=== PATIENT | male | born 1990 | race Hispanic/Latino ===

== ENCOUNTER 2017-06-12 17:59 | Emergency (ER) | payer SELFPAY ==
[~2017-06-12] VITALS: Ht 175.3 cm; Wt 72.5 kg
[~2017-06-12 17:59] MED LIST: FLOMAX0.4 MG OR; LORTAB 5 OR; MEDDOSEPAK PO; NO HOME MEDS; REGLAN5 MG OR; VICODIN ES1 TAB OR
[2017-06-12] MEDS ORDERED: TRAMADOL HYDROC50 MG PO (19:26)
[2017-06-12 19:48] VITALS: BP 135/82
== END 2017-06-12 19:48 | disposition home or self-care (01) | DRG 605 ==
LOC: ED 17:59
DX: S20.212A Contusion of left front wall of thorax, initial encounter (principal); R06.02 Shortness of breath; Y93.72 Activity, wrestling; Y92.009 Unspecified place in unspecified non-institutional (private) residence as the place of occurrence of the external cause

== ENCOUNTER 2018-07-11 19:06 | Emergency (ER) | payer SELFPAY ==
[~2018-07-11] VITALS: Ht 175.3 cm; Wt 77.0 kg
[~2018-07-11 19:06] MED LIST changes: +TRAMADOL HYDROC50 MG PO
[2018-07-11] MEDS ORDERED: TORADOL PO (20:20)
[2018-07-11] MEDS ORDERED: FLEXERIL5 M1 PO (20:20)
[2018-07-11 20:30] VITALS: BP 128/86
== END 2018-07-11 20:30 | disposition home or self-care (01) | DRG 563 ==
LOC: ED 19:06
DX: S39.012A Strain of muscle, fascia and tendon of lower back, initial encounter (principal); X58.XXXA Exposure to other specified factors, initial encounter

== ENCOUNTER 2019-01-28 13:18 | Emergency (ER) | payer SELFPAY ==
[~2019-01-28] VITALS: Ht 175.3 cm; Wt 72.7 kg
[~2019-01-28 13:18] MED LIST changes: +FLEXERIL5 M1 PO; +TORADOL PO
[2019-01-28 15:07] VITALS: BP 116/73
== END 2019-01-28 15:07 | disposition home or self-care (01) | DRG 563 ==
LOC: ED 13:18
PROC: 2W3RX1Z Immobilization of Left Lower Leg using Splint (ICD-10-PCS; principal; 2019-01-28)
DX: S82.432A Displaced oblique fracture of shaft of left fibula, initial encounter for closed fracture (principal); S93.402A Sprain of unspecified ligament of left ankle, initial encounter; M25.572 Pain in left ankle and joints of left foot; X50.1XXA Overexertion from prolonged static or awkward postures, initial encounter; W17.2XXA Fall into hole, initial encounter; Y92.007 Garden or yard of unspecified non-institutional (private) residence as the place of occurrence of the external cause

== ENCOUNTER 2019-02-17 11:02 | Day surgery (SDC) | payer SELFPAY ==
[~2019-02-17 11:02] MED LIST changes: +ALEVE220 M1 PO; +TYLENOL 500MG TAB PO
[2019-02-17 12:00] LABS: BARBITURATES NEGATIVE (NEGATIVE); COCAINE POSITIVE (NEGATIVE); METHADONE NEGATIVE (NEGATIVE); OXCYCODONE NEGATIVE (NEGATIVE); TETRAHYDROCANNABIONOL POSITIVE (NEGATIVE); TRICYLIC ANTIDEPRESSANTS NEGATIVE (NEGATIVE)
[2019-02-17] MEDS ORDERED: PERCOCET 10/31 COMBO PO (16:30)
[2019-02-17 17:09] VITALS: BP 127/81
== END 2019-02-17 17:22 | disposition home or self-care (01) | DRG 494 ==
LOC: ORM 11:02
PROVIDERS: ATTEND Orthopaedic Surgery
PROC: 0QSK04Z Reposition Left Fibula with Internal Fixation Device, Open Approach (ICD-10-PCS; principal; 2019-02-17)
PROC: 3E0T3BZ Introduction of Anesthetic Agent into Peripheral Nerves and Plexi, Percutaneous Approach (ICD-10-PCS; 2019-02-17)
DX: S82.62XA Displaced fracture of lateral malleolus of left fibula, initial encounter for closed fracture (principal); W18.30XA Fall on same level, unspecified, initial encounter
CPT/HCPCS: J0131

== ENCOUNTER 2019-03-13 15:09 | Emergency (ER) | payer SELFPAY ==
[~2019-03-13] VITALS: Ht 180.3 cm; Wt 77.0 kg
[~2019-03-13 15:09] MED LIST changes: +PERCOCET 10/31 COMBO PO
[2019-03-13] MEDS ORDERED: BACTRIM DS1 TAB PO (15:22)
[2019-03-13] MEDS ORDERED: CEPHALEXIN500 M1 PO (15:22)
[2019-03-13 16:10] LABS: HEMATOCRIT 40.4 % (39.0-50.0); IMMATURE GRANULOCYTES 0.5 % (0.0-5.0); MEAN CELL VOLUME 90.8 fL CALC (80.0-100.0); MEAN CORPUSCULAR HGB 30.1 pG CALC (26.0-32.0); MEAN CORPUSCULAR HGB CONC 33.2 g/L CALC (32.0-36.0); NEUT# 7.23 thou/uL (1.82-7.42); RED BLOOD COUNT 4.45 mill/uL (4.70-6.10)
[2019-03-13 16:16] LABS: HEMOGLOBIN 13.4 g/dl (14.0-18.0)
[2019-03-13 16:30] LABS: ANION GAP 14 (6-22 (CALC)); BUN 10 mg/dL (9-20); BUN/CREATININE RATIO 12 (12-20 (CALC)); CARBON DIOXIDE 24 mmol/l (22-30); CHLORIDE 104 mmol/l (95-108); CREATININE 0.8 mg/dL (0.7-1.3); GFR > 60 ML/MIN (>=60 (CALC)); GFR FOR AFR.AMER. > 60 ML/MIN (>=60 (CALC)); POTASSIUM 4.3 mmol/l (3.5-5.1); SODIUM 137 mmol/l (137-146)
[2019-03-13 16:42] VITALS: BP 120/68
== END 2019-03-13 16:55 | disposition home or self-care (01) | DRG 863 ==
LOC: ED 15:09
PROVIDERS: Family Medicine
DX: T81.41XA Infection following a procedure, superficial incisional surgical site, initial encounter (principal); L03.116 Cellulitis of left lower limb; Y83.8 Other surgical procedures as the cause of abnormal reaction of the patient, or of later complication, without mention of misadventure at the time of the procedure; F17.200 Nicotine dependence, unspecified, uncomplicated

== ENCOUNTER 2019-06-04 19:48 | Emergency (ER) | payer SELFPAY ==
[~2019-06-04] VITALS: Ht 180.3 cm; Wt 90.0 kg
[~2019-06-04 19:48] MED LIST changes: +BACTRIM DS1 TAB PO; +CEPHALEXIN500 M1 PO
[2019-06-04] MEDS ORDERED: CEPHALEXIN500 M1 PO (21:02)
[2019-06-04] MEDS ORDERED: BACTRIM DS1 TAB PO (21:02)
[2019-06-04] MEDS ORDERED: ULTRAM50 M1 PO (21:02)
[2019-06-04 21:15] VITALS: BP 129/82
== END 2019-06-04 21:15 | disposition home or self-care (01) | DRG 603 ==
LOC: ED 19:48
PROC: 0H9KXZZ Drainage of Right Lower Leg Skin, External Approach (ICD-10-PCS; principal; 2019-06-04)
DX: L02.415 Cutaneous abscess of right lower limb (principal); F17.210 Nicotine dependence, cigarettes, uncomplicated; B95.62 Methicillin resistant Staphylococcus aureus infection as the cause of diseases classified elsewhere

== ENCOUNTER 2019-06-07 17:53 | Emergency (ER) | payer SELFPAY ==
[~2019-06-07] VITALS: Ht 180.3 cm; Wt 77.3 kg
[~2019-06-07 17:53] MED LIST changes: +ULTRAM50 M1 PO
[2019-06-07] MEDS ORDERED: DOXYCYCL HYC100 MG PO (18:07)
[2019-06-07 18:32] VITALS: BP 138/82
== END 2019-06-07 18:35 | disposition home or self-care (01) | DRG 951 ==
LOC: ED 17:53
DX: Z48.01 Encounter for change or removal of surgical wound dressing (principal)